=== PATIENT | male | born 1945 | race Caucasian/White ===

== ENCOUNTER 2017-03-28 21:54 | Inpatient (IN) | payer MEDICARE ==
--- NOTE | ~2017-03-28 | HP ---
History And Physical [place] [id number] [facility] [place]. [address] NAME: SHERRI BUCK : 49 STATUS : ADM IN PAT#: [id number] AGE: 71 ADM/REG DATE : 03/28/17 MR#: [id number] REPORT SERV DATE: 03/29/17 DICTATED BY: NAY MARADIAGA DATE: 03/29/17 REPORT STATUS : Draft TRANSCRIBED BY: MODL DATE: 03/29/17 DATE OF ADMISSION: 03/28/2017 CHIEF COMPLAINT: Left foot pain and drainage. HISTORY OF PRESENT ILLNESS: This is a very kind and pleasant, though medically highly unfortunate 71-year-old, gentleman, who has end-stage renal disease, who dialyzes on Mondays, Wednesdays, and Fridays at the [facility] via his right forearm AV fistula. The gentleman has known substantial peripheral vascular disease as well as complicated diabetes of longstanding duration and has required multiple surgeries related to vascular disease, the most recent of which involved the amputation of the right hand and wrist due to ischemia, osteomyelitis, and necrosis in January of 2017. He has still been staying at home. He has been getting home health nurses coming out to change the dressings over a pressure wound and what root remains of his left foot. Apparently, to the dismay of his family members, the nurses were not cleaning the wound but simply replacing bandages. The gentleman over the past 2 days has been soaking the bandages with serous drainage. He is having low-grade temperatures at home and increasing pain. There was concern for infection and his scizvr-mu-rph pulled loose the dressing over the wound and several maggots fell out of the wound. In the emergency department, it was described to me, although I did not witness it, that maggots could be scooped out from the wound. The wound has been cultured. He has been found to have spreading redness up the leg and is admitted with new diagnosis of cellulitis related to complicated wound. He is due for hemodialysis tomorrow which would be 03/29/2017. PAST MEDICAL HISTORY: 1. Peripheral vascular disease with substantial history of amputations related, including right powee-lrh-yuva amputation, ring finger amputation, revision of AV fistula to prevent steal syndrome, right hand amputation due to osteomyelitis and ischemia, history of debridement and toe amputations. 2. Ischemic cardiomyopathy with chronically impaired left ventricular ejection fraction. He has an implanted defibrillator with AICD and pacemaker capabilities. 3. Coronary artery disease, history of CABG in December 2004. 4. AV fistula right lower extremity. This has had history of steal in the past. 5. CKD with secondary to diabetes and involved to ESRD. 6. Peripheral neuropathy secondary to diabetes. 7. Prior myocardial infarction. 8. Hypertension. 9. Hypothyroidism. 10.Hyperlipidemia. 11.Parkinson's features. 12.Previous history of small strokes. ALLERGIES: MULTIPLE AND INCLUDE VANCOMYCIN WHICH CAUSES SEVERELY ITCHING DIFFUSE RASH AND ALSO HE HAS INTOLERANCES TO IBUPROFEN, ATORVASTATIN, LISINOPRIL, DIAZEPAM, MORPHINE, AND SCOPOLAMINE. History And Physical [address] [address] NAME: SHERRI BUCK : 49 STATUS : ADM IN [facility]#: [id number] AGE: 71 ADM/REG DATE : 03/28/17 MR#: [id number] REPORT SERV DATE: 03/29/17 DICTATED BY: NAY MARADIAGA DATE: 03/29/17 REPORT STATUS : Draft TRANSCRIBED BY: LORRI DATE: 03/29/17 HOME MEDICATIONS: Baby aspirin, Sinemet, carvedilol, clopidogrel, vitamin B12 oral, Lomotil, ferric citrate as a phosphorus binder, furosemide, gabapentin, sliding scale NovoLog insulin, Lantus SoloSTAR 40 units subcutaneously at bedtime, levothyroxine low dosage, losartan, nitroglycerin sublingually p.r.n., OxyContin 10 mg twice daily, oxycodone/APAP 10/325 oral twice daily for pain, rosuvastatin, Entresto, tramadol, topical ointment as needed for buttock ulceration. SOCIAL HISTORY: He is and disabled. He is a . FAMILY HISTORY: No kidney diseases. REVIEW OF SYSTEMS: GENERAL: He denies fevers or chills, but did have a low-grade temperature at home. GI: Denies nausea, vomiting, or diarrhea. : He still makes some urine and had no complaints there. CARDIOVASCULAR: No chest pain. RESPIRATORY: No cough. All other review of systems was negative or as described in the history of present illness. PHYSICAL EXAMINATION: VITAL SIGNS: Temperature 99.7, maximal temperature 100.6 at home today, heart rate 73, respiratory rate 20, blood pressure 90/60. GENERAL: Chronically ill-appearing gentleman, who is alert, lucid, lightly of conversational and seems to be optimistic in nature. He is in no distress. HEENT: Normocephalic, atraumatic. External ears and nose normal sinuses, nontender. Oropharynx, mucous membranes are moist and pale. Free of any ulcerations or exudates. Eye exam, chronic right lid lag is noted and the patient says he has had this for a long time. Extraocular motor function was intact bilaterally. Pupils round and reactive to light. Lids and conjunctivae are free of any exudates. NECK: Easily movable. No palpable masses or nodules. Trachea midline. LYMPHATIC: Anterior-posterior neck, supraclavicular, abdominal regions were free of lymphadenopathy. RESPIRATORY: Effort is nonlabored. Lung valadez clear to auscultation throughout. CARDIOVASCULAR: Regular rate and rhythm is appreciated without any gallop, rub, or murmur. He has a +1 dependent pitting edema bilateral lower extremities. No cyanosis. ABDOMEN: Slightly protuberant, but soft without guarding. No palpable masses or nodules. Trachea midline. No bruits on auscultation. No palpable masses. Percussion elicits no fluid wave. SKIN: Significant scaling bilateral shins and calves. Left foot is bandaged. 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 Right hand and wrist amputation also uncomplicated. Right forearm AV fistula with positive thrill and bruit. Skin turgor was within normal limits. The left foot is bandaged and I did not remove the bandages. There is streaks of redness, erythema, and induration extending from the right foot up into the lopes. STUDIES: CT of the foot and ankle on the left is pending. Chemistry: Sodium 135, potassium 3.6, chloride 94, CO2 of 29, BUN 43, creatinine 6.65, glucose 261, alkaline phosphatase 160. History And Physical [address] [address] [address] [place]. [address] NAME: SHERRI BUCK : 49 STATUS : ADM IN [facility]#: [id number] AGE: 71 ADM/REG DATE : 03/28/17 MR#: [id number] REPORT SERV DATE: 03/29/17 DICTATED BY: NAY MARADIAGA DATE: 03/29/17 REPORT STATUS : Draft TRANSCRIBED BY: LORRI DATE: 03/29/17 ALT, AST, and total bilirubin were within normal limits. Albumin 3 g/dL. Lactate level is normal. Left foot x-rays revealed no osteomyelitis evident. CBC: White cell count 13.1, hemoglobin 10, hematocrit 29.8, platelets 139. IMPRESSION: 1. Complicated cellulitis of the left foot. He has had prior partial amputation. He has no pressure ulcer in the heel aspect of the left foot. He has known peripheral vascular and peripheral arterial disease. The wound had maggots and by the description of the ER practitioner, the region was malodorous and suspicious for wet gangrene. 2. Known peripheral vascular disease with previous recent multiple amputations. He may end up needing a left kybjt-pix-glge amputation. 3. End-stage renal disease. Compliant with dialysis on Mondays, Wednesdays, and Fridays at the [facility]. He has AV fistula. 4. Other past medical history and chronic problems as outlined above. PLAN: 1. Admission to monitor bed. 2. Blood culture sent already. Clindamycin and Zosyn will be initiated. 3. Consult, Dr. Rodger Nolan, his vascular surgeon to evaluate. 4. CT of the left foot with and without IV contrast. 5. Accu-Cheks with sliding scale NovoLog. Continue glargine present at home dosage. 6. Pain management with Dilaudid and also Percocet as he normally uses. 7. Ongoing nutrition efforts. 8. Home medications to be addressed. 9. Hemodialysis on Wednesday, Wednesdays, and Fridays. I will send for outside records, but I plan to keep him on erythropoietin after each dialysis treatment. JOSE A/LORRI Nay Maradiaga M.D. / [id number] CC: Bhavana Moyer MD
--- NOTE | ~2017-03-28 | OP ---
Record Of Operation [facility] [address] [place]. [address] NAME: SHERRI BUCK : 49 STATUS : ADM IN PAT#: [id number] AGE: 71 ADM/REG DATE : 03/28/17 MR#: [id number] REPORT SERV DATE: 03/31/17 DICTATED BY: RUBI NOLAN DATE: 03/31/17 REPORT STATUS : Draft TRANSCRIBED BY: MODL DATE: 03/31/17 DATE OF PROCEDURE: 03/31/2017 PREOPERATIVE DIAGNOSES: 1. Ischemic changes, left hand. 2. Atherosclerosis with gangrene and ulcerations, left foot. ANESTHESIA: General. COMPLICATIONS: None. ESTIMATED BLOOD LOSS: 30 mL. PROCEDURES: 1. Arch and left upper extremity arteriogram. 2. Left lower extremity arteriogram. 3. Ray amputation, 5th toe, left foot. 4. Debrided skin, subcutaneous tissues 4 x 4 cm, excisional, left heel. 5. Placement of VAC dressing 34 sq cm. HISTORY: The patient is a 71-year-old male who presented to the ER with infection in his left foot and wounds. He has a gangrenous wound of the left heel as well. He has known peripheral arterial disease, diabetes, end-stage renal disease. Additionally, he has ischemic changes to fingers on his left hand. It was felt he would benefit from arteriogram with possible intervention to the left arm and leg as well as debridement of the left foot. This was discussed with the patient and , and they expressed understanding and desired to proceed. PROCEDURE IN DETAIL: The patient was taken to the operating room and placed in the supine position. He was given general anesthesia without complication. Both groins and left arm were prepped and draped in sterile fashion. Ultrasound was used to identify the common femoral on the right. 1% lidocaine was infiltrated in the skin and subcutaneous tissues. Under ultrasound guidance, an 18-gauge needle was placed in the common femoral artery. Wire was passed to the aorta, which confirmed with fluoroscopy. The needle was removed. A 5- Welsh sheath was placed. UF catheter was passed over the wire into the aortic arch. Arch aortogram shows a patent arch with patent innominate and right common carotid artery. The right subclavian artery was noted to be patent. The left common carotid artery is patent. The right subclavian artery origin is patent as is the remaining arch. A UF catheter and Glidewire were used to access the left subclavian artery. Arteriogram was performed showing a patent left subclavian and axillary artery. The vertebral artery was patent as well. Arteriogram in the upper arm shows the brachial artery to be widely patent as well. Flow in general was sluggish. Wire was placed in the catheter and the catheter was placed to the brachial artery. Arteriogram was performed showing the brachial artery to be patent to below the elbow. There was a widely patent radial artery with occluded ulnar artery in the proximal forearm and a small interosseous artery, which barely makes it to the wrist. The radial artery has prompt flow, however, to the hand and appears to fill the entire palmar Record Of Operation [place] [id number] [facility] [place]. [address] NAME: SHERRI BUCK : 49 STATUS : ADM IN PAT#: [id number] AGE: 71 ADM/REG DATE : 03/28/17 MR#: [id number] REPORT SERV DATE: 03/31/17 DICTATED BY: RUBI NOLAN DATE: 03/31/17 REPORT STATUS : Draft TRANSCRIBED BY: LORRI DATE: 03/31/17 arch. It was calcified, but no stenosis is seen. The digital vessels are extremely small, but are visualized. No option for intervention was noted. Wire was placed in the catheter. Catheter was pulled down to the aortic bifurcation and then passed over the wire into the external iliac artery on the left. Arteriogram shows a patent common internal and external iliac artery. Common femoral and profunda femoral were patent. Superficial femoral artery was widely patent. Wire was placed in the catheter. Catheter was placed in the mid superficial femoral artery. Arteriogram shows a patent popliteal artery above and below the knee. The tibioperoneal trunk was patent. The anterior tibial artery was patent proximally and then appears to occlude. The posterior tibial artery was widely patent to the foot, fills the plantar branches and no stenosis was seen. The peroneal artery was patent to above the ankle and then a collateral from here fills what appears to be the dorsalis pedis artery to the foot. No significant stenosis is seen. Based on this, no option for intervention on the left leg was seen as well. The sheath was removed. Access closed with Exoseal device. Attention was turned to the left foot. There was purulent drainage from the fourth toe amputation site and extensive gangrenous change to the lateral aspect of the 5th toe. A 10 blade was used to excise this entire area including the 5th toe to the metatarsophalangeal joint. A rongeur was then used to debride the metatarsal head to healthy bone. All necrotic tissue was then excised with a 10 blade to healthy bleeding tissue. There was no residual infection or necrosis. Hemostasis was achieved here with Bovie cautery. Attention was then turned to the left heel, which had an extensive gangrenous wound. This was excised sharply with a 10 blade to healthy bleeding tissue. The bone was not exposed. Bovie cautery was used to achieve hemostasis here. The wound at the forefoot measured 6 x 3 cm. The wound at the heel measured 4 x 4 cm. A VAC sponge was cut to the appropriate size and placed over both wounds and adhesive used to secure it. Dissection was initiated without difficulty. The patient tolerated the procedure well. He was extubated in the operating room and taken to recovery in stable condition. ABELINO/LORRI Rubi Nolan M.D. / [id number] CC: Shaggy Maradiaga M.D.
--- NOTE | ~2017-03-28 | DS ---
Discharge Summary [facility] [address] [facility] [place]. [address] NAME: SHERRI BUCK : 49 STATUS : DIS IN PAT#: [id number] AGE: 71 ADM/REG DATE : 03/28/17 MR#: [id number] REPORT SERV DATE: 04/24/17 DICTATED BY: NAY MARADIAGA DATE: 04/23/17 REPORT STATUS : Draft TRANSCRIBED BY: LORRI DATE: 04/23/17 Data Collection from hospitalization DISCHARGE DIAGNOSES: 1. Cellulitis of the left foot, status post incision and drainage. 2. End-stage renal disease. 3. Diabetes mellitus. 4. Hypotension. 5. Peripheral vascular disease. 6. Hypertension. 7. Ischemic cardiomyopathy. 8. Coronary artery disease. 9. Peripheral neuropathy secondary to diabetes. 10.History of previous myocardial infarction. 11.Hypothyroidism. 12.Hyperlipidemia. 13.Parkinson's features. 14.History of small strokes. 15.Former smoker. CONSULTATIONS: Dr. Rodger Nolan. PROCEDURES: 1. Arch and left upper extremity arteriogram, left lower extremity arteriogram, ray amputation of 5th toe left foot, debrided skin, subcutaneous tissue, 4 x 4 cm excisional left heel, placement of VAC dressing 34 sq cm, 03/31/2017. 2. CT scan of the left lower extremity with contrast, 03/29/2017. 3. Color flow study of the left lower extremity, 03/30/2017. PATHOLOGY: Left 5th toe partial amputation - atherosclerotic peripheral vascular disease with focal calcification, cutaneous ulceration with severe acute necrotizing inflammation and deep inflammatory tract and large areas of soft tissue infarction including involvement of proximal skin and soft tissue margin with focal area of viable cutaneous tissue without ulceration, bone with focal acute osteomyelitis and focal bone destruction (including area of proximal margin). MEDICATIONS: Aspirin 81 mg every morning; Sinemet one tablet three times a day; Coreg 6.25 mg twice a day; Plavix 75 mg every morning; vitamin B12 1000 mcg every morning; Lasix 40 mg with breakfast and supper; Neurontin 300 mg three times a day; NovoLog injection insulin as instructed; Synthroid 25 mcg daily; Crestor 40 mg at bedtime; Florastor one capsule twice a day; Renvela 800 mg with meals; Venelex applied to perineum and buttocks topically three times a day; ProAmatine 5 mg at 9:00 a.m., 1:00 p.m., and 6:00 p.m.; Levemir 10 units subcutaneously at bedtime; Tylenol 650 mg as needed orally or rectally; Lomotil 2.5 mg twice a day as needed; Imodium 2 mg every four hours as needed; Nitrostat 0.4 mg sublingually as needed; Percocet 10/325 one tablet every six hours as needed; Auryxia 420 mg twice a day; Risamine ointment one application topically three times a day as needed. CONDITION AT DISCHARGE: Stable. Discharge Summary [facility] [address] [place]. [address] NAME: SHERRI BUCK : 47 STATUS : DIS IN PAT#: [id number] AGE: 71 ADM/REG DATE : 03/28/17 MR#: [id number] REPORT SERV DATE: 04/24/17 DICTATED BY: NAY MARADIAGA DATE: 04/23/17 REPORT STATUS : Draft TRANSCRIBED BY: LORRI DATE: 04/23/17 DISPOSITION: The patient was discharged to [facility] on 1999 calorie renal/diabetic diet with activities as instructed. HOSPITAL COURSE: This is a 71-year-old man who has end-stage renal disease and dialyzes on Mondays, Wednesdays, and Fridays via a right forearm AV fistula. The patient has known substantial peripheral vascular disease as well as complicated diabetes of longstanding duration and had required multiple surgeries related to vascular disease. The most recent of which involved amputation of the right hand and wrist due to ischemia, osteomyelitis, and necrosis in January of 2017. He had still been staying at home, he has being getting home health nurses to come out and change the dressings over a pressure wound and what route remained of his left foot. Apparently, to the dismay of his family members, the nurses were not cleaning the wound but simply replacing the bandages. Over the past two days, the patient began soaking the bandages with serous drainage. He was having low-grade temperatures at home and increasing pain. There was concern for infection and his mother-in law pulled loose the dressing over the wound and several maggots fell out of the wound. In the emergency department, it was described to me, although I did not witness this that maggots could be scooped out of the wound. The wound had been cultured. He had been found to have spreading redness of the leg. He was felt to have a new diagnosis of cellulitis related to a complicated wound. He was admitted to the hospital at this time for further evaluation and treatment. Upon admission, a CT scan of the left lower extremity with contrast was performed. Creatinine level was 6.65. White count was 13.1. He was felt to have complicated cellulitis of the left foot. He had no pressure ulcer of the heel aspect of the left foot. The wound had maggots and by the description of the emergency room physician, the region was malodorous and suspicious for wet gangrene. He was placed in a monitored bed. Blood cultures were obtained. Clindamycin and Zosyn were initiated. Dilaudid and Percocet were going to be used for pain control. Sliding scale NovoLog was started. The following day, he was seen by Dr. Rodger Nolan. The patient has a gangrenous wound of the left heel as well as infection in his left foot and wound. He does have known peripheral arterial disease, diabetes, and end-stage renal disease. In addition, he had ischemic changes to the fingers on his left hand. It was felt that he would benefit from arteriogram with possible intervention to the left arm and leg as well as debridement of the left foot. Treatment options were discussed with the patient and his and they agreed to proceed. On the , he had no new complaints. Left lower extremity arterial study was performed. White count was 9.6. Plans were being made to proceed with surgical intervention. On 03/31/2017, the patient was taken to the operating room by Dr. Rodger Nolan, where he underwent the above-mentioned procedure. He tolerated this well and there were no complications. On postop day #1, his blood sugars had decreased. He had not eaten. His abdomen was soft and nontender. Levemir was decreased. He was not going to receive any further Dilaudid. Culture results were reviewed. The next day, he was feeling better. Antibiotics were continued. Hemodialysis therapy was performed. He did have some hypotension. He remained stable over the next couple of days. He does have protein malnutrition and was felt that he would need long-term facility placement. He was evaluated by Physical Therapy. Supportive care continued. He said he was feeling well. O2 saturation was 96% on room air. Discharge Summary [facility] [address] [facility] [place]. [address] NAME: SHERRI BUCK : 49 STATUS : DIS IN PAT#: [id number] AGE: 71 ADM/REG DATE : 03/28/17 MR#: [id number] REPORT SERV DATE: 04/24/17 DICTATED BY: NAY MARADIAGA DATE: 04/23/17 REPORT STATUS : Draft TRANSCRIBED BY: LORRI DATE: 04/23/17 Zosyn was continued. On 04/10/2017, he had no new complaints. He had good pain control. Hemodialysis therapy continued. Discharge planning was performed on 04/14/2017, he had no new complaints. Discharge instructions were given. He had some nausea. Due to his improved and stable condition, he was discharged to [facility] with the above-stated instructions. Information collected by: Maggie Mathews I submit the above information as my discharge summary. NAOMI/LORRI Nay Maradiaga M.D. / [id number] CC: Bhavana Moyer MD [facility] Rodger Nolan M.D.
[2017-03-28 21:40] LABS: BASOPHILS 0.3 %; BASOPHILS ABSOLUTE 0.04 10/3/uL (0.0-0.16); EOSINOPHILS 0.5 %; EOSINOPHILS ABSOLUTE 0.07 10/3/uL (0.0-0.53); ER CBC TAT 0 Hrs 05 Mins; IMMATURE GRANULOCYTES 0.2 %; IMMATURE GRANULOCYTES ABSOLUTE 0.03 10/3/uL (0.0-0.11); LYMPHOCYTES 5.9 %; LYMPHOCYTES ABSOLUTE 0.78 10/3/uL (0.67-4.30); MEAN CORPUSCULAR HEMOGLOB 30.3 pg (26.0-34.0); MEAN PLATELET VOLUME 9.3 fL (9.2-13.0); MONOCYTES 5.6 %; MONOCYTES ABSOLUTE 0.74 10/3/uL (0.21-1.20); NEUTROPHILS 87.5 %; NEUTROPHILS ABSOLUTE 11.47 10/3/uL (2.02-8.40); RBC DISTRIBUTION WIDTH 15.3 % (12.0-16.0); WHITE BLOOD CELLS 13.1 10/3/uL (4.5-10.5)
[2017-03-28 21:42] LABS: HEMATOCRIT 29.8 % (40.0-51.0); MANUAL DIFF NO %; MEAN CORPUS HGB CONC 33.6 g/dL (32.0-36.0); MEAN CORPUSCULAR VOLUME 90.3 fL (80-100); PLATELET COUNT 139 10/3/uL (150-400)
[2017-03-28 21:49] LABS: INTERNATIONAL NORMAL RATI 1.3 UNITS (-); PARTIAL THROMBO TIME 35.4 SEC (22.5-37.2); PROTIME (NOT ORD) 16.5 SEC (12.0-14.5)
[~2017-03-28 21:54] MED LIST: AMITIZA24 PO; AMITIZA8 MCG PO; AMOXIL875 MG PO; ASAB PO; AT25 PO; BACTROINT TOP; BESIVANCE0.6 %; BESIVANCE0.6 % OPH; BUM1 PO; CEFT5 PO; COREG PO; COREG12 PO; COREG25 PO; COREG6 PO; COZ50 PO; CRESTOR PO; CRESTOR10 PO; CRESTOR20 MG PO; CUBICIN500 MG IV; CYANO1000T PO; DIOV160 PO; DIOVAN HC2 PO; DUREZOL0.05 % OPH; FLEX PO; HALF81 PO; HYDROCHLOROTHIAZIDE; HYDROCODONE; ILEVRO1.7 ML OPH; IODOSORB TOP; IRON325 MG PO; L20 PO; L40 PO; L80 PO; LACT30UDL PO; LANTUS SC; LANTUSCART SC; LEVAQUIN5T PO; LEVOTHYROXIN25 MCG PO; LEVOTHYROXIN50 MCG PO; LEVOTHYROXIN75 MCG PO; LEVOTHYROXINE PO; LOFIB160 PO; LOSARTAN PO; MONODOX100 MG PO; MSCONT15 PO; MSCONTIN PO; MSIMMR15 PO; NEUR300 PO; NITROII20C TOP; NITROQUICK0.4 MG SL; NITROSTAT0.4 MG SL; NORCO1 TA1 PO; NORCO1 TA2 PO; NORCO1 TAB PO; NORV10 PO; NOVOLOG SC; NOVOPEN SC; NTG150 SL; PARKINSONS MED PO; PERCOCET1 TA4 PO; PHOSLO PO; PLAVIX PO; PR12.5 PO; PROLENSA1.6 ML OPH; PROTONIX PO; REG5 PO; RENAL SFTGLS1 MG PO; RENVELA800 MG PO; SIN10 PO; SIN25 PO; SYN.025B PO; SYN.05 PO; TEARS NATURA OPH; ULTRAM50 PO; VANCOMYCIN; VITAMIN D1000 UNI1 PO; XODOL1 TA2 PO; ZOCOR40 PO; ZOFRAN4 PO; [UNRECOGNIZED DRUG - REMARK] PO; [UNRECOGNIZED DRUG - REMARK] PO
[2017-03-28 21:55] LABS: A/G RATIO 0.8 (0.7-1.9); ALKALINE PHOSPHATASE 160 U/L (45-117); BUN (BLOOD UREA NITROGEN) 43 MG/DL (6-23); CALCIUM, SERUM 8.2 MG/DL (8.5-10.4); CHLORIDE, SERUM 94 MMOL/L (96-112); CO2 (CARBON DIOXIDE) 29 MMOL/L (24-34); CREATININE 6.65 MG/DL (0.70-1.30); GFR AFRICAN AMERICAN 9 ML/MIN (>=60); GFR NON AFRICAN AMERICAN 8 ML/MIN (>=60); GLOBULIN 3.6 G/DL (2.5-4.1); GLUCOSE, SERUM 261 MG/DL (60-99); POTASSIUM, SERUM 3.6 MMOL/L (3.5-5.3); SGOT(AST) 11 U/L (5-40); SGPT(ALT) 9 U/L (5-65); SODIUM, SERUM 135 MMOL/L (135-148); TOTAL BILIRUBIN 0.7 MG/DL (0-1.2); TOTAL PROTEIN 6.6 G/DL (6.0-8.5)
[2017-03-28] MEDS ORDERED: PLAVIX PO (21:56)
[2017-03-28] MEDS ORDERED: PERCOCET 10/3251 TAB PO (21:56)
[2017-03-28] MEDS ORDERED: LOM PO (21:56)
[2017-03-28] MEDS ORDERED: CRESTOR40 MG PO (21:56)
[2017-03-28] MEDS ORDERED: ULTRAM50 PO (21:57)
[2017-03-28] MEDS ORDERED: LANTUSCART SC (21:57)
[2017-03-28] MEDS ORDERED: OXYCON10 PO (21:58)
[2017-03-28] MEDS ORDERED: SACU1TAB PO (21:59)
[2017-03-28] MEDS ORDERED: NEUR300 PO (21:59)
[2017-03-28] MEDS ORDERED: COREG6 PO (21:59)
[2017-03-28] MEDS ORDERED: SIN25 PO (22:00)
[2017-03-28] MEDS ORDERED: AURYXIA210 MG PO (22:01)
[2017-03-28] MEDS ORDERED: NITROSTAT0.4 MG SL (22:01)
[2017-03-28] MEDS ORDERED: CYANO1000T PO (22:02)
[2017-03-28] MEDS ORDERED: ASAB PO (22:02)
[2017-03-28] MEDS ORDERED: NOVOLOG SC (22:03)
[2017-03-28] MEDS ORDERED: L40 PO (22:03)
[2017-03-28] MEDS ORDERED: COZ50 PO (22:05)
[2017-03-28] MEDS ORDERED: SYN.025B PO (22:33)
[2017-03-28] MEDS ORDERED: RISAMINE OINTMENT TOP (22:34)
[2017-03-29 17:24] LABS: BASOPHILS 0.3 %; BASOPHILS ABSOLUTE 0.03 10/3/uL (0.0-0.16); EOSINOPHILS 1.8 %; HEMATOCRIT 29.7 % (40.0-51.0); HEMOGLOBIN 9.9 g/dL (13.6-17.8); IMMATURE GRANULOCYTES 0.4 %; IMMATURE GRANULOCYTES ABSOLUTE 0.04 10/3/uL (0.0-0.11); LYMPHOCYTES 4.5 %; LYMPHOCYTES ABSOLUTE 0.49 10/3/uL (0.67-4.30); MEAN CORPUS HGB CONC 33.3 g/dL (32.0-36.0); MEAN CORPUSCULAR HEMOGLOB 29.6 pg (26.0-34.0); MEAN CORPUSCULAR VOLUME 88.9 fL (80-100); MEAN PLATELET VOLUME 9.2 fL (9.2-13.0); MONOCYTES 8.3 %; NEUTROPHILS 84.7 %; PLATELET COUNT 141 10/3/uL (150-400); RBC DISTRIBUTION WIDTH 15.3 % (12.0-16.0); RED CELL COUNT 3.34 10/6/uL (4.7-6.1); WHITE BLOOD CELLS 10.9 10/3/uL (4.5-10.5)
[2017-03-29 17:26] LABS: MANUAL DIFF NO %
[2017-03-29 17:30] LABS: ALBUMIN 2.7 G/DL (3.5-5.0); CALCIUM, SERUM 7.7 MG/DL (8.5-10.4); CHLORIDE, SERUM 97 MMOL/L (96-112); CO2 (CARBON DIOXIDE) 25 MMOL/L (24-34); POTASSIUM, SERUM 3.6 MMOL/L (3.5-5.3); SODIUM, SERUM 136 MMOL/L (135-148)
[2017-03-29 17:31] LABS: BUN (BLOOD UREA NITROGEN) 53 MG/DL (6-23); CREATININE 7.52 MG/DL (0.70-1.30); GFR AFRICAN AMERICAN 8 ML/MIN (>=60); GFR NON AFRICAN AMERICAN 7 ML/MIN (>=60); GLUCOSE, SERUM 96 MG/DL (60-99); PHOSPHORUS, SERUM 8.9 MG/DL (2.5-4.5)
[2017-03-30 04:06] LABS: BASOPHILS 0.4 %; BASOPHILS ABSOLUTE 0.04 10/3/uL (0.0-0.16); EOSINOPHILS 2.3 %; EOSINOPHILS ABSOLUTE 0.22 10/3/uL (0.0-0.53); HEMATOCRIT 30.9 % (40.0-51.0); IMMATURE GRANULOCYTES 0.6 %; IMMATURE GRANULOCYTES ABSOLUTE 0.06 10/3/uL (0.0-0.11); LYMPHOCYTES 7.7 %; LYMPHOCYTES ABSOLUTE 0.74 10/3/uL (0.67-4.30); MEAN CORPUS HGB CONC 32.4 g/dL (32.0-36.0); MEAN CORPUSCULAR HEMOGLOB 29.2 pg (26.0-34.0); MEAN CORPUSCULAR VOLUME 90.4 fL (80-100); MEAN PLATELET VOLUME 9.9 fL (9.2-13.0); MONOCYTES 9.3 %; NEUTROPHILS 79.7 %; NEUTROPHILS ABSOLUTE 7.68 10/3/uL (2.02-8.40); PLATELET COUNT 141 10/3/uL (150-400); RBC DISTRIBUTION WIDTH 15.7 % (12.0-16.0); RED CELL COUNT 3.42 10/6/uL (4.7-6.1); WHITE BLOOD CELLS 9.6 10/3/uL (4.5-10.5)
[2017-03-30 04:07] LABS: MANUAL DIFF NO %
[2017-03-30 04:12] LABS: INTERNATIONAL NORMAL RATI 1.9 UNITS (-)
[2017-03-30 04:13] LABS: PROTIME (NOT ORD) 21.4 SEC (12.0-14.5)
[2017-03-30 04:25] LABS: PARTIAL THROMBO TIME > 150.0 SEC (22.5-37.2)
[2017-03-30 04:26] LABS: ALBUMIN 2.7 G/DL (3.5-5.0); BUN (BLOOD UREA NITROGEN) 32 MG/DL (6-23); CALCIUM, SERUM 8.3 MG/DL (8.5-10.4); CHLORIDE, SERUM 104 MMOL/L (96-112); CO2 (CARBON DIOXIDE) 25 MMOL/L (24-34); CREATININE 5.34 MG/DL (0.70-1.30); GFR AFRICAN AMERICAN 12 ML/MIN (>=60); GFR NON AFRICAN AMERICAN 10 ML/MIN (>=60); GLUCOSE, SERUM 51 MG/DL (60-99); PHOSPHORUS, SERUM 6.1 MG/DL (2.5-4.5); POTASSIUM, SERUM 3.8 MMOL/L (3.5-5.3); SODIUM, SERUM 141 MMOL/L (135-148)
[2017-03-31 08:04] LABS: BASOPHILS 0.3 %; BASOPHILS ABSOLUTE 0.03 10/3/uL (0.0-0.16); HEMATOCRIT 29.8 % (40.0-51.0); HEMOGLOBIN 9.7 g/dL (13.6-17.8); IMMATURE GRANULOCYTES 0.4 %; IMMATURE GRANULOCYTES ABSOLUTE 0.04 10/3/uL (0.0-0.11); LYMPHOCYTES 8.8 %; LYMPHOCYTES ABSOLUTE 0.86 10/3/uL (0.67-4.30); MEAN CORPUS HGB CONC 32.6 g/dL (32.0-36.0); MEAN CORPUSCULAR HEMOGLOB 29.4 pg (26.0-34.0); MEAN CORPUSCULAR VOLUME 90.3 fL (80-100); MEAN PLATELET VOLUME 9.1 fL (9.2-13.0); MONOCYTES 8.5 %; MONOCYTES ABSOLUTE 0.83 10/3/uL (0.21-1.20); NEUTROPHILS ABSOLUTE 7.84 10/3/uL (2.02-8.40); PLATELET COUNT 129 10/3/uL (150-400); RBC DISTRIBUTION WIDTH 15.5 % (12.0-16.0); WHITE BLOOD CELLS 9.8 10/3/uL (4.5-10.5)
[2017-03-31 08:07] LABS: MANUAL DIFF NO %
[2017-03-31 08:42] LABS: ALBUMIN 2.5 G/DL (3.5-5.0); BUN (BLOOD UREA NITROGEN) 41 MG/DL (6-23); CALCIUM, SERUM 8.1 MG/DL (8.5-10.4); CHLORIDE, SERUM 102 MMOL/L (96-112); CO2 (CARBON DIOXIDE) 24 MMOL/L (24-34); CREATININE 6.57 MG/DL (0.70-1.30); GFR AFRICAN AMERICAN 9 ML/MIN (>=60); GFR NON AFRICAN AMERICAN 8 ML/MIN (>=60); GLUCOSE, SERUM 93 MG/DL (60-99); PHOSPHORUS, SERUM 8.1 MG/DL (2.5-4.5); POTASSIUM, SERUM 4.3 MMOL/L (3.5-5.3); SODIUM, SERUM 139 MMOL/L (135-148)
[2017-04-01 09:12] LABS: BASOPHILS 0.2 %; BASOPHILS ABSOLUTE 0.02 10/3/uL (0.0-0.16); EOSINOPHILS 2.3 %; EOSINOPHILS ABSOLUTE 0.22 10/3/uL (0.0-0.53); HEMATOCRIT 29.6 % (40.0-51.0); HEMOGLOBIN 9.3 g/dL (13.6-17.8); IMMATURE GRANULOCYTES 0.3 %; IMMATURE GRANULOCYTES ABSOLUTE 0.03 10/3/uL (0.0-0.11); LYMPHOCYTES 7.3 %; LYMPHOCYTES ABSOLUTE 0.69 10/3/uL (0.67-4.30); MEAN CORPUS HGB CONC 31.4 g/dL (32.0-36.0); MEAN CORPUSCULAR VOLUME 92.2 fL (80-100); MONOCYTES 8.4 %; NEUTROPHILS 81.5 %; NEUTROPHILS ABSOLUTE 7.75 10/3/uL (2.02-8.40); PLATELET COUNT 128 10/3/uL (150-400); RBC DISTRIBUTION WIDTH 15.6 % (12.0-16.0); RED CELL COUNT 3.21 10/6/uL (4.7-6.1); WHITE BLOOD CELLS 9.5 10/3/uL (4.5-10.5)
[2017-04-01 09:21] LABS: CALCIUM, SERUM 7.7 MG/DL (8.5-10.4); CHLORIDE, SERUM 104 MMOL/L (96-112); CO2 (CARBON DIOXIDE) 27 MMOL/L (24-34); POTASSIUM, SERUM 4.1 MMOL/L (3.5-5.3); SODIUM, SERUM 141 MMOL/L (135-148)
[2017-04-01 09:22] LABS: BUN (BLOOD UREA NITROGEN) 25 MG/DL (6-23); CREATININE 4.92 MG/DL (0.70-1.30); GFR AFRICAN AMERICAN 13 ML/MIN (>=60); GFR NON AFRICAN AMERICAN 11 ML/MIN (>=60); GLUCOSE, SERUM 84 MG/DL (60-99)
[2017-04-01 09:23] LABS: MANUAL DIFF NO %
[2017-04-02 07:29] LABS: BASOPHILS 0.4 %; BASOPHILS ABSOLUTE 0.03 10/3/uL (0.0-0.16); EOSINOPHILS 2.6 %; EOSINOPHILS ABSOLUTE 0.21 10/3/uL (0.0-0.53); HEMATOCRIT 29.3 % (40.0-51.0); HEMOGLOBIN 9.4 g/dL (13.6-17.8); IMMATURE GRANULOCYTES 0.4 %; IMMATURE GRANULOCYTES ABSOLUTE 0.03 10/3/uL (0.0-0.11); LYMPHOCYTES 9.6 %; LYMPHOCYTES ABSOLUTE 0.78 10/3/uL (0.67-4.30); MEAN CORPUS HGB CONC 32.1 g/dL (32.0-36.0); MEAN CORPUSCULAR HEMOGLOB 29.1 pg (26.0-34.0); MEAN CORPUSCULAR VOLUME 90.7 fL (80-100); MEAN PLATELET VOLUME 8.8 fL (9.2-13.0); MONOCYTES 9.8 %; NEUTROPHILS 77.2 %; NEUTROPHILS ABSOLUTE 6.28 10/3/uL (2.02-8.40); PLATELET COUNT 105 10/3/uL (150-400); RBC DISTRIBUTION WIDTH 15.6 % (12.0-16.0); RED CELL COUNT 3.23 10/6/uL (4.7-6.1); WHITE BLOOD CELLS 8.1 10/3/uL (4.5-10.5)
[2017-04-02 07:30] LABS: MANUAL DIFF NO %
[2017-04-02 07:48] LABS: ALBUMIN 2.4 G/DL (3.5-5.0); BUN (BLOOD UREA NITROGEN) 31 MG/DL (6-23); CALCIUM, SERUM 7.9 MG/DL (8.5-10.4); CHLORIDE, SERUM 103 MMOL/L (96-112); CO2 (CARBON DIOXIDE) 25 MMOL/L (24-34); CREATININE 5.88 MG/DL (0.70-1.30); GFR AFRICAN AMERICAN 10 ML/MIN (>=60); GFR NON AFRICAN AMERICAN 9 ML/MIN (>=60); GLUCOSE, SERUM 139 MG/DL (60-99); PHOSPHORUS, SERUM 7.3 MG/DL (2.5-4.5); POTASSIUM, SERUM 4.2 MMOL/L (3.5-5.3); SODIUM, SERUM 138 MMOL/L (135-148)
[2017-04-05 08:09] LABS: BASOPHILS 0.3 %; BASOPHILS ABSOLUTE 0.03 10/3/uL (0.0-0.16); EOSINOPHILS 2.9 %; HEMOGLOBIN 10.4 g/dL (13.6-17.8); IMMATURE GRANULOCYTES 0.5 %; IMMATURE GRANULOCYTES ABSOLUTE 0.05 10/3/uL (0.0-0.11); LYMPHOCYTES 10.1 %; LYMPHOCYTES ABSOLUTE 1.05 10/3/uL (0.67-4.30); MEAN CORPUS HGB CONC 32.5 g/dL (32.0-36.0); MEAN CORPUSCULAR HEMOGLOB 29.1 pg (26.0-34.0); MEAN CORPUSCULAR VOLUME 89.6 fL (80-100); MEAN PLATELET VOLUME 8.9 fL (9.2-13.0); MONOCYTES 8.9 %; MONOCYTES ABSOLUTE 0.92 10/3/uL (0.21-1.20); NEUTROPHILS 77.3 %; NEUTROPHILS ABSOLUTE 8.02 10/3/uL (2.02-8.40); PLATELET COUNT 100 10/3/uL (150-400); RBC DISTRIBUTION WIDTH 15.5 % (12.0-16.0); RED CELL COUNT 3.57 10/6/uL (4.7-6.1); WHITE BLOOD CELLS 10.4 10/3/uL (4.5-10.5)
[2017-04-05 08:10] LABS: MANUAL DIFF NO %
[2017-04-05 08:37] LABS: ALBUMIN 2.5 G/DL (3.5-5.0); BUN (BLOOD UREA NITROGEN) 33 MG/DL (6-23); CALCIUM, SERUM 8.5 MG/DL (8.5-10.4); CHLORIDE, SERUM 102 MMOL/L (96-112); CO2 (CARBON DIOXIDE) 21 MMOL/L (24-34); PHOSPHORUS, SERUM 7.1 MG/DL (2.5-4.5); POTASSIUM, SERUM 4.7 MMOL/L (3.5-5.3); SODIUM, SERUM 138 MMOL/L (135-148)
[2017-04-05 08:38] LABS: CREATININE 6.95 MG/DL (0.70-1.30); GFR AFRICAN AMERICAN 9 ML/MIN (>=60); GFR NON AFRICAN AMERICAN 7 ML/MIN (>=60); GLUCOSE, SERUM 79 MG/DL (60-99)
[2017-04-07 08:22] LABS: BASOPHILS 0.2 %; BASOPHILS ABSOLUTE 0.02 10/3/uL (0.0-0.16); EOSINOPHILS 2.9 %; EOSINOPHILS ABSOLUTE 0.25 10/3/uL (0.0-0.53); HEMATOCRIT 32.5 % (40.0-51.0); HEMOGLOBIN 10.3 g/dL (13.6-17.8); IMMATURE GRANULOCYTES 0.3 %; IMMATURE GRANULOCYTES ABSOLUTE 0.03 10/3/uL (0.0-0.11); LYMPHOCYTES 12.7 %; MEAN CORPUS HGB CONC 31.7 g/dL (32.0-36.0); MEAN CORPUSCULAR HEMOGLOB 28.8 pg (26.0-34.0); MEAN CORPUSCULAR VOLUME 90.8 fL (80-100); MEAN PLATELET VOLUME 9.5 fL (9.2-13.0); MONOCYTES 11.8 %; MONOCYTES ABSOLUTE 1.02 10/3/uL (0.21-1.20); NEUTROPHILS 72.1 %; NEUTROPHILS ABSOLUTE 6.26 10/3/uL (2.02-8.40); PLATELET COUNT 82 10/3/uL (150-400); RBC DISTRIBUTION WIDTH 15.4 % (12.0-16.0); RED CELL COUNT 3.58 10/6/uL (4.7-6.1); WHITE BLOOD CELLS 8.7 10/3/uL (4.5-10.5)
[2017-04-07 08:28] LABS: MANUAL DIFF NO %
[2017-04-07 08:35] LABS: ALBUMIN 2.6 G/DL (3.5-5.0); BUN (BLOOD UREA NITROGEN) 29 MG/DL (6-23); CALCIUM, SERUM 8.3 MG/DL (8.5-10.4); CHLORIDE, SERUM 101 MMOL/L (96-112); CO2 (CARBON DIOXIDE) 28 MMOL/L (24-34); CREATININE 6.93 MG/DL (0.70-1.30); GFR AFRICAN AMERICAN 9 ML/MIN (>=60); GFR NON AFRICAN AMERICAN 7 ML/MIN (>=60); GLUCOSE, SERUM 94 MG/DL (60-99); PHOSPHORUS, SERUM 6.5 MG/DL (2.5-4.5); POTASSIUM, SERUM 4.3 MMOL/L (3.5-5.3); SODIUM, SERUM 137 MMOL/L (135-148)
[2017-04-09 07:02] LABS: BASOPHILS 0.3 %; BASOPHILS ABSOLUTE 0.03 10/3/uL (0.0-0.16); EOSINOPHILS 3.5 %; EOSINOPHILS ABSOLUTE 0.36 10/3/uL (0.0-0.53); HEMATOCRIT 34.2 % (40.0-51.0); HEMOGLOBIN 10.5 g/dL (13.6-17.8); IMMATURE GRANULOCYTES 0.4 %; IMMATURE GRANULOCYTES ABSOLUTE 0.04 10/3/uL (0.0-0.11); LYMPHOCYTES 11.8 %; MANUAL DIFF NO %; MEAN CORPUS HGB CONC 30.7 g/dL (32.0-36.0); MEAN CORPUSCULAR HEMOGLOB 27.9 pg (26.0-34.0); MEAN CORPUSCULAR VOLUME 90.7 fL (80-100); MEAN PLATELET VOLUME 9.7 fL (9.2-13.0); MONOCYTES 11.6 %; MONOCYTES ABSOLUTE 1.18 10/3/uL (0.21-1.20); NEUTROPHILS 72.4 %; PLATELET COUNT 94 10/3/uL (150-400); RBC DISTRIBUTION WIDTH 15.4 % (12.0-16.0); RED CELL COUNT 3.77 10/6/uL (4.7-6.1); WHITE BLOOD CELLS 10.2 10/3/uL (4.5-10.5)
[2017-04-09 08:03] LABS: ALBUMIN 2.6 G/DL (3.5-5.0); CALCIUM, SERUM 8.5 MG/DL (8.5-10.4); CHLORIDE, SERUM 103 MMOL/L (96-112); CO2 (CARBON DIOXIDE) 26 MMOL/L (24-34); CREATININE 6.83 MG/DL (0.70-1.30); GFR AFRICAN AMERICAN 9 ML/MIN (>=60); GFR NON AFRICAN AMERICAN 7 ML/MIN (>=60); POTASSIUM, SERUM 4.3 MMOL/L (3.5-5.3); SODIUM, SERUM 140 MMOL/L (135-148)
[2017-04-09 08:04] LABS: BUN (BLOOD UREA NITROGEN) 24 MG/DL (6-23); GLUCOSE, SERUM 71 MG/DL (60-99); PHOSPHORUS, SERUM 5.5 MG/DL (2.5-4.5)
[2017-04-12 08:25] LABS: BASOPHILS 0.4 %; BASOPHILS ABSOLUTE 0.04 10/3/uL (0.0-0.16); EOSINOPHILS 2.8 %; EOSINOPHILS ABSOLUTE 0.31 10/3/uL (0.0-0.53); HEMATOCRIT 32.1 % (40.0-51.0); HEMOGLOBIN 10.4 g/dL (13.6-17.8); IMMATURE GRANULOCYTES 0.3 %; IMMATURE GRANULOCYTES ABSOLUTE 0.03 10/3/uL (0.0-0.11); LYMPHOCYTES 11.4 %; LYMPHOCYTES ABSOLUTE 1.28 10/3/uL (0.67-4.30); MEAN CORPUSCULAR HEMOGLOB 28.1 pg (26.0-34.0); MEAN PLATELET VOLUME 9.3 fL (9.2-13.0); MONOCYTES 9.2 %; MONOCYTES ABSOLUTE 1.03 10/3/uL (0.21-1.20); NEUTROPHILS 75.9 %; NEUTROPHILS ABSOLUTE 8.51 10/3/uL (2.02-8.40); PLATELET COUNT 74 10/3/uL (150-400); RBC DISTRIBUTION WIDTH 15.6 % (12.0-16.0); WHITE BLOOD CELLS 11.2 10/3/uL (4.5-10.5)
[2017-04-12 08:26] LABS: MANUAL DIFF NO %; MEAN CORPUS HGB CONC 32.4 g/dL (32.0-36.0); MEAN CORPUSCULAR VOLUME 86.8 fL (80-100)
[2017-04-12 08:39] LABS: ALBUMIN 2.6 G/DL (3.5-5.0); CALCIUM, SERUM 8.1 MG/DL (8.5-10.4); CHLORIDE, SERUM 99 MMOL/L (96-112); CO2 (CARBON DIOXIDE) 24 MMOL/L (24-34); PHOSPHORUS, SERUM 6.3 MG/DL (2.5-4.5); POTASSIUM, SERUM 5.1 MMOL/L (3.5-5.3)
[2017-04-12 08:43] LABS: BUN (BLOOD UREA NITROGEN) 33 MG/DL (6-23); CREATININE 8.12 MG/DL (0.70-1.30); GFR AFRICAN AMERICAN 7 ML/MIN (>=60); GFR NON AFRICAN AMERICAN 6 ML/MIN (>=60); GLUCOSE, SERUM 109 MG/DL (60-99); SODIUM, SERUM 133 MMOL/L (135-148)
[2017-04-12 09:12] LABS: OVALOCYTES 1+ (3-10/OIF) (0-2/OIF); PLATELET ESTIMATE DEC (ADEQUATE)
[2017-04-13 05:39] LABS: BASOPHILS 0.5 %; BASOPHILS ABSOLUTE 0.04 10/3/uL (0.0-0.16); EOSINOPHILS 3.2 %; EOSINOPHILS ABSOLUTE 0.28 10/3/uL (0.0-0.53); HEMATOCRIT 34.2 % (40.0-51.0); HEMOGLOBIN 10.7 g/dL (13.6-17.8); IMMATURE GRANULOCYTES 0.5 %; IMMATURE GRANULOCYTES ABSOLUTE 0.04 10/3/uL (0.0-0.11); LYMPHOCYTES 14.9 %; LYMPHOCYTES ABSOLUTE 1.29 10/3/uL (0.67-4.30); MEAN CORPUS HGB CONC 31.3 g/dL (32.0-36.0); MEAN CORPUSCULAR HEMOGLOB 28.1 pg (26.0-34.0); MEAN PLATELET VOLUME 9.4 fL (9.2-13.0); MONOCYTES 8.5 %; MONOCYTES ABSOLUTE 0.73 10/3/uL (0.21-1.20); NEUTROPHILS 72.4 %; NEUTROPHILS ABSOLUTE 6.25 10/3/uL (2.02-8.40); PLATELET COUNT 68 10/3/uL (150-400); RBC DISTRIBUTION WIDTH 15.7 % (12.0-16.0); RED CELL COUNT 3.81 10/6/uL (4.7-6.1); WHITE BLOOD CELLS 8.6 10/3/uL (4.5-10.5)
[2017-04-13 05:41] LABS: MANUAL DIFF NO %; MEAN CORPUSCULAR VOLUME 89.8 fL (80-100)
[2017-04-13 05:52] LABS: ALBUMIN 2.7 G/DL (3.5-5.0); CALCIUM, SERUM 8.4 MG/DL (8.5-10.4); CHLORIDE, SERUM 103 MMOL/L (96-112); CO2 (CARBON DIOXIDE) 28 MMOL/L (24-34); POTASSIUM, SERUM 4.4 MMOL/L (3.5-5.3); SODIUM, SERUM 140 MMOL/L (135-148)
[2017-04-13 05:53] LABS: BUN (BLOOD UREA NITROGEN) 18 MG/DL (6-23); CREATININE 5.88 MG/DL (0.70-1.30); GFR AFRICAN AMERICAN 10 ML/MIN (>=60); GFR NON AFRICAN AMERICAN 9 ML/MIN (>=60); GLUCOSE, SERUM 131 MG/DL (60-99); PHOSPHORUS, SERUM 4.9 MG/DL (2.5-4.5)
[2017-04-13 05:57] LABS: PLATELET ESTIMATE DEC (ADEQUATE); TEARDROP SHAPED RBCS FEW (3-10/OIF)
[2017-04-14 09:47] LABS: BASOPHILS 0.5 %; BASOPHILS ABSOLUTE 0.04 10/3/uL (0.0-0.16); EOSINOPHILS 3.7 %; HEMATOCRIT 32.8 % (40.0-51.0); HEMOGLOBIN 10.4 g/dL (13.6-17.8); IMMATURE GRANULOCYTES 0.2 %; IMMATURE GRANULOCYTES ABSOLUTE 0.02 10/3/uL (0.0-0.11); LYMPHOCYTES 16.4 %; LYMPHOCYTES ABSOLUTE 1.32 10/3/uL (0.67-4.30); MEAN CORPUS HGB CONC 31.7 g/dL (32.0-36.0); MEAN CORPUSCULAR VOLUME 88.2 fL (80-100); MEAN PLATELET VOLUME 9.5 fL (9.2-13.0); MONOCYTES 8.4 %; MONOCYTES ABSOLUTE 0.68 10/3/uL (0.21-1.20); NEUTROPHILS 70.8 %; PLATELET COUNT 60 10/3/uL (150-400); RBC DISTRIBUTION WIDTH 15.6 % (12.0-16.0); RED CELL COUNT 3.72 10/6/uL (4.7-6.1); WHITE BLOOD CELLS 8.1 10/3/uL (4.5-10.5)
[2017-04-14 09:49] LABS: MANUAL DIFF NO %
[2017-04-14 10:01] LABS: ALBUMIN 2.7 G/DL (3.5-5.0); CALCIUM, SERUM 8.4 MG/DL (8.5-10.4); CHLORIDE, SERUM 99 MMOL/L (96-112); CO2 (CARBON DIOXIDE) 24 MMOL/L (24-34); POTASSIUM, SERUM 4.7 MMOL/L (3.5-5.3); SODIUM, SERUM 136 MMOL/L (135-148)
[2017-04-14 10:02] LABS: BUN (BLOOD UREA NITROGEN) 25 MG/DL (6-23); CREATININE 7.16 MG/DL (0.70-1.30); GFR AFRICAN AMERICAN 8 ML/MIN (>=60); GFR NON AFRICAN AMERICAN 7 ML/MIN (>=60); GLUCOSE, SERUM 93 MG/DL (60-99); PHOSPHORUS, SERUM 5.9 MG/DL (2.5-4.5)
[2017-04-14 10:05] LABS: PLATELET ESTIMATE DEC (ADEQUATE)
[2017-04-14 10:06] LABS: RBC MORPHOLOGY NORM (NORMAL)
== END 2017-04-14 17:50 | DRG 853 ==
LOC: ER 21:54 → 4SO 22:45 → SDC/OF 03-31 17:51 → 2SO 03-31 20:29
PROVIDERS: Internal Medicine Nephrology; Nurse Practitioner; Nurse Practitioner Acute Care; Registered Nurse; Surgery
PROC: 5A1D60Z (ICD-10-PCS; 2017-03-29)
PROC: B31J1ZZ Fluoroscopy of Left Upper Extremity Arteries using Low Osmolar Contrast (ICD-10-PCS; principal; 2017-03-31 14:15)
PROC: 0Y6N0ZF Detachment at Left Foot, Partial 5th Ray, Open Approach (ICD-10-PCS; 2017-03-31 14:15)
PROC: 0HBNXZZ Excision of Left Foot Skin, External Approach (ICD-10-PCS; 2017-03-31 14:15)
PROC: B41G1ZZ Fluoroscopy of Left Lower Extremity Arteries using Low Osmolar Contrast (ICD-10-PCS; 2017-03-31 14:15)
DX: A41.9 Sepsis, unspecified organism (principal); N18.6 End stage renal disease; I74.8 Embolism and thrombosis of other arteries; E11.52 Type 2 diabetes mellitus with diabetic peripheral angiopathy with gangrene; I12.0 Hypertensive chronic kidney disease with stage 5 chronic kidney disease or end stage renal disease; E46 Unspecified protein-calorie malnutrition; L03.116 Cellulitis of left lower limb; M86.172 Other acute osteomyelitis, left ankle and foot; E11.22 Type 2 diabetes mellitus with diabetic chronic kidney disease; E11.621 Type 2 diabetes mellitus with foot ulcer; I25.5 Ischemic cardiomyopathy; I25.10 Atherosclerotic heart disease of native coronary artery without angina pectoris; E03.9 Hypothyroidism, unspecified; E78.5 Hyperlipidemia, unspecified; G20 Parkinson's disease; B87.1 Wound myiasis; F17.210 Nicotine dependence, cigarettes, uncomplicated; G47.33 Obstructive sleep apnea (adult) (pediatric); I25.2 Old myocardial infarction; Z79.4 Long term (current) use of insulin; Z99.2 Dependence on renal dialysis; Z89.512 Acquired absence of left leg below knee; Z95.1 Presence of aortocoronary bypass graft; Z86.73 Personal history of transient ischemic attack (TIA), and cerebral infarction without residual deficits; Z88.1 Allergy status to other antibiotic agents; Z88.5 Allergy status to narcotic agent; Z88.8 Allergy status to other drugs, medicaments and biological substances; Z89.111 Acquired absence of right hand; Z95.810 Presence of automatic (implantable) cardiac defibrillator; Z99.81 Dependence on supplemental oxygen; Z89.511 Acquired absence of right leg below knee
CPT/HCPCS: 11043; 28810; 36215; 36221; 36247; 71010; 73630-LT; 73701-LT; 74022; 75710; 75774; 80048; 80053; 80069; 82947; 82962; 83605; 83735; 85025; 85610; 85730; 87040; 87070; 87077; 87186; 87205; 88305; 88311; 93005; 93926; 96365; 96375; 97110-GO; 97110-GP; 97161-GP; 97166-GO; 97530-GP; 97535-GO; 97605; 99284; A9270-GY; C1760; C1769; G0257; J0885; J1170; J2250; J2370; J2405; J2543; J3010; P9047; Q9967